=== PATIENT | female | born 1935 | race Caucasian/White ===

== ENCOUNTER 2017-09-08 17:58 | Emergency (ER) | payer MEDICARE, BC ==
[2017-09-08] MEDS ORDERED: Sodium Chloride 0.9% 10 ML Syringe FLUSH PRN (18:59)
[2017-09-08] MEDS ORDERED: Acetaminophen 325 MG Tab PO ONE (19:53)
[2017-09-08 22:25] VITALS: BP 161/104
[2017-09-08] MEDS ORDERED: Oseltamivir 75 MG Cap PO ONE (22:28)
--- NOTE | 2017-09-08 22:35 | EDM.PDOC ---
ED HPI GENERAL MEDICAL PROBLEM - General Chief Complaint: Respiratory Problem Stated Complaint: WEAKNESS Time Seen by Provider: 09/08/17 18:29 Source of Information: Reports: Family History Limitations: Reports: No Limitations - History of Present Illness INITIAL COMMENTS - FREE TEXT/NARRATIVE: This lady is brought in by EMS. She has dementia so her history is not very reliable. She seems to have the same symptoms as 2 months ago when she had some pneumonia. Apparently there's been some fever and chills and body aches. Her said her temp was 100.2 this morning. She's also had a little bit of lower abdominal pain and they're wondering about a urinary tract infection. The patient is non-ambulatory. She did get a flu shot this year - Related Data Allergies Allergy/AdvReac Type Severity Reaction Status Date / Time No Known Allergies Allergy Verified 01/09/14 06:09 Home Meds: Home Meds Warfarin Sodium [Jantoven] 5 mg PO ASDIRECTED 01/09/14 [History] Albuterol Sulfate [Ventolin Hfa] 2 puff INH QID PRN 09/08/17 [History] Cholestyramine (With Sugar) [Questran Powder] 9 gr PO BID 09/08/17 [History] Furosemide [Furosemide] 1 tab PO DAILY 09/08/17 [History] LORazepam 0.5 tab PO DAILY 09/08/17 [History] Metoprolol Tartrate [Metoprolol Tartrate] 1 tab PO BID 09/08/17 [History] Sertraline [Zoloft] 1 tab PO DAILY 09/08/17 [History] Vit D3/Folic Acid/B2/B6/B12 [Folgard Tablet] 1 tab PO DAILY 09/08/17 [History] risperiDONE 1 tab PO DAILY 09/08/17 [History] Social & Family History - Tobacco Use Smoking Status *Q: Never Smoker Second Hand Smoke Exposure: No - Alcohol Use Days Per Week of Alcohol Use: 0 - Recreational Drug Use Recreational Drug Use: No ED ROS GENERAL - Review of Systems Review Of Systems: ROS reveals no pertinent complaints other than HPI. (All history given by the family) ED EXAM, GENERAL - Physical Exam Exam: See Below Exam Limited By: No Limitations General Appearance: Alert, No Apparent Distress, Obese Eye Exam: Bilateral Eye: Normal Inspection Ears: Normal TMs Nose: Normal Inspection Throat/Mouth: Normal Inspection, Other (Well-hydrated) Head: Atraumatic Neck: Normal Inspection Respiratory/Chest: No Respiratory Distress, Lungs Clear Cardiovascular: Regular Rate, Rhythm, No Murmur Peripheral Pulses: 2+: Radial (L), Radial (R) (Pedal pulses cannot be palpated due to chronic edema) GI/Abdominal: Soft, Non-Tender Extremities: Pedal Edema (Chronic no evidence of cellulitis) Neurological: Alert, CN II-XII Intact, No Motor/Sensory Deficits, Confused Psychiatric: Normal Affect, Normal Mood Skin Exam: Warm, Dry, Intact Course - Vital Signs Last Recorded V/S: Last Vital Signs Temp 37.7 C 09/08/17 20:49 Pulse 110 H 09/08/17 22:24 Resp 22 H 09/08/17 22:24 BP 161/104 H 09/08/17 22:24 Pulse Ox 90 L 09/08/17 22:24 - Orders/Labs/Meds Orders: Active Orders 24 hr Category Date Time Status Chest 1V Frontal [CR] Urgent Exams 09/08/17 18:59 Taken Sodium Chloride 0.9% [Saline Flush] Med 09/08/17 18:59 Active 10 ml FLUSH ASDIRECTED PRN Saline Lock Insert [OM.PC] Urgent Oth 09/08/17 18:59 Ordered Medication Orders Sodium Chloride (Saline Flush) 10 ml FLUSH ASDIRECTED PRN PRN Reason: Keep Vein Open Labs: Laboratory Tests 09/08/17 09/08/17 09/08/17 Range/Units 19:11 19:11 19:11 WBC 7.4 (4.5-11.0) K/uL RBC 4.77 (3.30-5.50) M/uL Hgb 14.2 (12.0-15.0) g/dL Hct 44.4 (36.0-48.0) % MCV 93 (80-98) fL MCH 30 (27-31) pg MCHC 32 (32-36) % Plt Count 207 (150-400) K/uL Neut % (Auto) 76 H (36-66) % Lymph % (Auto) 13 L (24-44) % [place] % (Auto) 10 H (2-6) % Eos % (Auto) 1 L (2-4) % Baso % (Auto) 0 (0-1) % Sodium 139 L (140-148) mmol/L Potassium 3.8 (3.6-5.2) mmol/L Chloride 102 (100-108) mmol/L Carbon Dioxide 29 (21-32) mmol/L Anion Gap 11.8 (5.0-14.0) mmol/L BUN 21 H (7-18) mg/dL Creatinine 1.5 H (0.6-1.0) mg/dL Est Cr Clr Drug Dosing TNP Estimated GFR (MDRD) 33 L (>60) Glucose 102 (74-106) mg/dL Lactic Acid 1.2 (0.4-2.0) mmol/L Calcium 8.4 L (8.5-10.1) mg/dL Total Bilirubin 0.7 (0.2-1.0) mg/dL AST 32 (15-37) U/L ALT 41 (12-78) U/L Alkaline Phosphatase 98 (46-116) U/L Total Protein 7.5 (6.4-8.2) g/dL Albumin 3.2 L (3.4-5.0) g/dL Globulin 4.3 H (2.3-3.5) g/dL Albumin/Globulin Ratio 0.7 L (1.2-2.2) Urine Color Urine Appearance Urine pH (4.5-8.0) Ur Specific [place] (1.008-1.030) Urine Protein (NEGATIVE) mg/dL Urine Glucose (UA) (NEGATIVE) mg/dL Urine Ketones (NEGATIVE) mg/dL Urine Occult Blood (NEGATIVE) Urine Nitrite (NEGATIVE) Urine Bilirubin (NEGATIVE) Urine Urobilinogen (NORMAL) mg/dL Ur Leukocyte Esterase (NEGATIVE) Urine RBC (0-5) Urine WBC (0-5) Ur Epithelial Cells Amorphous Sediment Urine Bacteria Urine Mucus 09/08/17 Range/Units 20:50 WBC (4.5-11.0) K/uL RBC (3.30-5.50) M/uL Hgb (12.0-15.0) g/dL Hct (36.0-48.0) % MCV (80-98) fL MCH (27-31) pg MCHC (32-36) % Plt Count (150-400) K/uL Neut % (Auto) (36-66) % Lymph % (Auto) (24-44) % [place] % (Auto) (2-6) % Eos % (Auto) (2-4) % Baso % (Auto) (0-1) % Sodium (140-148) mmol/L Potassium (3.6-5.2) mmol/L Chloride (100-108) mmol/L Carbon Dioxide (21-32) mmol/L Anion Gap (5.0-14.0) mmol/L BUN (7-18) mg/dL Creatinine (0.6-1.0) mg/dL Est Cr Clr Drug Dosing Estimated GFR (MDRD) (>60) Glucose (74-106) mg/dL Lactic Acid (0.4-2.0) mmol/L Calcium (8.5-10.1) mg/dL Total Bilirubin (0.2-1.0) mg/dL AST (15-37) U/L ALT (12-78) U/L Alkaline Phosphatase (46-116) U/L Total Protein (6.4-8.2) g/dL Albumin (3.4-5.0) g/dL Globulin (2.3-3.5) g/dL Albumin/Globulin Ratio (1.2-2.2) Urine Color Yellow Urine Appearance Clear Urine pH 7.0 (4.5-8.0) Ur Specific [place] 1.015 (1.008-1.030) Urine Protein 30 H (NEGATIVE) mg/dL Urine Glucose (UA) Normal (NEGATIVE) mg/dL Urine Ketones Negative (NEGATIVE) mg/dL Urine Occult Blood Moderate (NEGATIVE) Urine Nitrite Negative (NEGATIVE) Urine Bilirubin Negative (NEGATIVE) Urine Urobilinogen Normal (NORMAL) mg/dL Ur Leukocyte Esterase Negative (NEGATIVE) Urine RBC 0-5 (0-5) Urine WBC 0-5 (0-5) Ur Epithelial Cells Few Amorphous Sediment Few Urine Bacteria Few Urine Mucus Rare Meds: Medications Generic Name Dose Route Start Last Admin Trade Name Freq PRN Reason Stop Dose Admin Sodium Chloride 10 ml 09/08/17 18:59 Saline Flush FLUSH ASDIRECTED PRN Keep Vein Open Discontinued Medications Generic Name Dose Route Start Last Admin Trade Name Freq PRN Reason Stop Dose Admin Acetaminophen 650 mg 09/08/17 19:53 09/08/17 19:58 Tylenol PO 09/08/17 19:54 650 mg NOW ONE Administration Oseltamivir Phosphate 75 mg 09/08/17 22:28 Tamiflu PO 09/08/17 22:29 ONETIME ONE - Radiology Interpretation Free Text/Narrative:: Chest x-ray showed no evidence of active disease. - Re-Assessments/Exams Free Text/Narrative Re-Assessment/Exam: 09/08/17 22:34 I haven't found any evidence of an acute infectious disease in this lady. Overall she looks fairly healthy. Since she has had a fever and body aches, even though the influenza test is negative, I will cover her for influenza since this may be early symptoms of an influenza-like illness. There have been a few cases of influenza in the community. I explained to the family there is no need for antibiotics in this lady Departure - Departure Time of Disposition: 22:36 Disposition: DC/Tfer to [facility] 03 Condition: Fair Clinical Impression: Influenza-like illness - Discharge Information Referrals: Shital Dillard NP [Primary Care Provider] - Additional Instructions: This lady may be having early signs of an influenza-like illness. Her flu test was negative however and she has received a flu shot. Since the influenza test is not totally sensitive for the flu I will go ahead and cover her with some Tamiflu. She received her first dose in the emergency department. She will need one dose twice a day for an additional 9 doses. - My Orders Last 24 Hours: My Active Orders 09/08/17 18:59 Chest 1V Frontal [CR] Urgent Sodium Chloride 0.9% [Saline Flush] 10 ml FLUSH ASDIRECTED PRN Saline Lock Insert [OM.PC] Urgent - Assessment/Plan Last 24 Hours: My Active Orders 09/08/17 18:59 Chest 1V Frontal [CR] Urgent Sodium Chloride 0.9% [Saline Flush] 10 ml FLUSH ASDIRECTED PRN Saline Lock Insert [OM.PC] Urgent
== END 2017-09-09 00:05 ==
LOC: JP.ED 17:58
DX: J11.1 Influenza due to unidentified influenza virus with other respiratory manifestations (principal); Z79.01 Long term (current) use of anticoagulants; Z79.899 Other long term (current) drug therapy
CPT/HCPCS: 36415; 71010; 80053; 81001; 83605; 85025; 87804; 99285; A9270; 99283

== ENCOUNTER 2017-09-09 23:08 | Inpatient (IN) | payer MEDICARE, BC ==
[2017-09-10] MEDS ORDERED: Oseltamivir 75 MG Cap PO ONE (00:06)
--- NOTE | 2017-09-10 02:12 | EDM.PDOC ---
ED HPI GENERAL MEDICAL PROBLEM - General Chief Complaint: Fever Stated Complaint: ILLNESS Time Seen by Provider: 09/10/17 00:05 Source of Information: Reports: Patient, Family History Limitations: Reports: Physical Impairment - History of Present Illness INITIAL COMMENTS - FREE TEXT/NARRATIVE: This patient was seen in the emergency department yesterday by me. She has been having some low-grade fever and cough and the family just wanted her checked out. A full septic workup was done on her and there was no evidence of any kind of bacterial infection. I did do an influenza test which was also negative and it's noted that there are only a few cases of influenza around. Since there is a fairly high false-negative rate on the influenza test I went ahead and started her on some Tamiflu and [place] [facility] back [place] [facility] [place] [facility]. She actually is in what amounts to an assisted living facility rather than a [facility] [place] [facility] since there is no nurse present. Today the family was with her a said that her temperature was up to 101 this morning. She still continues to cough weekly and is not able to cough up anything. They feel she's been lethargic all day. Her speech seemed to be garbled for about 1 or 1-1/2 hours earlier today. A family member who is a nurse at our hospital took a look at her and felt like she needed to be evaluated in the hospital. The patient's and daughter both feel like she looks a lot worse today than she did yesterday This lady has dementia so was not able to give much of a history. throat Pain Score (Numeric/FACES): 2 - Related Data Allergies Allergy/AdvReac Type Severity Reaction Status Date / Time No Known Allergies Allergy Verified 01/09/14 06:09 Home Meds: Home Meds Albuterol Sulfate [Ventolin Hfa] 2 puff INH QID PRN 09/08/17 [History] Cholestyramine (With Sugar) [Questran Powder] 9 gr PO BID 09/08/17 [History] Furosemide 1 tab PO DAILY 09/08/17 [History] LORazepam 0.5 tab PO DAILY 09/08/17 [History] Sertraline [Zoloft] 1 tab PO DAILY 09/08/17 [History] Vit D3/Folic Acid/B2/B6/B12 [Folgard Tablet] 1 tab PO DAILY 09/08/17 [History] risperiDONE 1 tab PO DAILY 09/08/17 [History] Diltiazem HCl [Diltiazem 24Hr Cd] 240 mg PO DAILY #30 cap.er.24h 09/14/17 [Rx] Levofloxacin [Levaquin] 250 mg PO Q24H #3 tablet 09/14/17 [Rx] Metoprolol Tartrate [Lopressor] 50 mg PO BID #60 tablet 09/14/17 [Rx] Warfarin Sodium [Jantoven] 5 mg PO DAILY #0 09/14/17 [Rx] Past Medical History Cardiovascular History: Reports: Afib, High Cholesterol, Hypertension, Other ( See Below) Other Cardiovascular History: hx of paroxysmal supraventricular tachycardia Respiratory History: Reports: Other (See Below) Other Respiratory History: reactive airway disease Social & Family History - Tobacco Use Smoking Status *Q: Never Smoker Second Hand Smoke Exposure: No - Caffeine Use Caffeine Use: Reports: None - Alcohol Use Days Per Week of Alcohol Use: 0 - Recreational Drug Use Recreational Drug Use: No ED ROS GENERAL - Review of Systems Review Of Systems: See Below Constitutional: Reports: Fever, Malaise, Weakness, Diaphoresis HEENT: Reports: No Symptoms Respiratory: Reports: Cough (The family says her cough is very weak and she has never able to expectorate anything) Cardiovascular: Reports: No Symptoms Endocrine: Reports: No Symptoms GI/Abdominal: Reports: No Symptoms : Reports: No Symptoms Musculoskeletal: Reports: No Symptoms Skin: Reports: No Symptoms Neurological: Reports: Confusion Psychiatric: Reports: No Symptoms Hematologic/Lymphatic: Reports: No Symptoms ED EXAM, SEPSIS - Physical Exam Exam: See Below Exam Limited By: Altered Mental Status General Appearance: Alert, Mild Distress, Obese, Other (Initially she seems alert and in no distress. On rechecking she seems like she has a wet cough and seems diaphoretic.) Eye Exam: Bilateral Eye: Normal Inspection Throat/Mouth: Normal Oropharynx Neck: Normal Inspection Respiratory/Chest: Lungs Clear Cardiovascular: Irregularly Irregular GI/Abdominal Exam: Soft, Non-Tender, Other (Very obese) Back: Normal Inspection Extremities: Pedal Edema (Severe chronic leg edema bilaterally) Neurological: CN II-XII Intact, Confused, Other (At times this lady seems alert at other times she seems a little slow to respond) Skin: Diaphoretic Course - Vital Signs Last Recorded V/S: Last Vital Signs Temp 36.1 C 09/14/17 08:00 Pulse 120 H 09/14/17 08:10 Resp 16 09/14/17 10:00 BP 117/75 09/14/17 10:00 Pulse Ox 94 L 09/14/17 10:00 - Orders/Labs/Meds Labs: Laboratory Tests 09/10/17 09/10/17 09/10/17 Range/Units 00:21 00:21 00:21 WBC 8.4 (4.5-11.0) K/uL RBC 4.72 (3.30-5.50) M/uL Hgb 14.2 (12.0-15.0) g/dL Hct 43.4 (36.0-48.0) % MCV 92 (80-98) fL MCH 30 (27-31) pg MCHC 33 (32-36) % Plt Count 191 (150-400) K/uL Neut % (Auto) 72 H (36-66) % Lymph % (Auto) 18 L (24-44) % [place] % (Auto) 9 H (2-6) % Eos % (Auto) 1 L (2-4) % Baso % (Auto) 1 (0-1) % PT (9.5-12.0) sec INR (0.80-1.20) Sodium 139 L (140-148) mmol/L Potassium 3.9 (3.6-5.2) mmol/L Chloride 103 (100-108) mmol/L Carbon Dioxide 26 (21-32) mmol/L Anion Gap 13.9 (5.0-14.0) mmol/L BUN 21 H (7-18) mg/dL Creatinine 1.6 H (0.6-1.0) mg/dL Est Cr Clr Drug Dosing 23.81 mL/min Estimated GFR (MDRD) 31 L (>60) Glucose 117 H (74-106) mg/dL Lactic Acid 1.2 (0.4-2.0) mmol/L Calcium 8.7 (8.5-10.1) mg/dL 09/10/17 Range/Units 02:55 WBC (4.5-11.0) K/uL RBC (3.30-5.50) M/uL Hgb (12.0-15.0) g/dL Hct (36.0-48.0) % MCV (80-98) fL MCH (27-31) pg MCHC (32-36) % Plt Count (150-400) K/uL Neut % (Auto) (36-66) % Lymph % (Auto) (24-44) % [place] % (Auto) (2-6) % Eos % (Auto) (2-4) % Baso % (Auto) (0-1) % PT 15.4 H (9.5-12.0) sec INR 1.42 H (0.80-1.20) Sodium (140-148) mmol/L Potassium (3.6-5.2) mmol/L Chloride (100-108) mmol/L Carbon Dioxide (21-32) mmol/L Anion Gap (5.0-14.0) mmol/L BUN (7-18) mg/dL Creatinine (0.6-1.0) mg/dL Est Cr Clr Drug Dosing mL/min Estimated GFR (MDRD) (>60) Glucose (74-106) mg/dL Lactic Acid (0.4-2.0) mmol/L Calcium (8.5-10.1) mg/dL Meds: Medications Discontinued Medications Generic Name Dose Route Start Last Admin Trade Name Freq PRN Reason Stop Dose Admin Acetaminophen 650 mg 09/10/17 02:43 09/11/17 16:08 Tylenol PO 650 mg Q4H PRN Administration analgesia/fever Albuterol/Ipratropium 3 ml 09/10/17 02:51 09/13/17 09:12 Duoneb 3.0-0.5 Mg/3 Ml NEB 3 ml Q4H PRN Administration Dyspnea Azithromycin 500 mg 09/10/17 09:00 09/10/17 08:57 Zithromax PO 09/10/17 09:01 500 mg DAILY SHENA Administration Azithromycin 250 mg 09/11/17 09:00 09/11/17 08:17 Zithromax PO 09/14/17 09:01 250 mg DAILY SHENA Administration Digoxin 250 mcg 09/14/17 09:00 09/14/17 10:00 Lanoxin IVPUSH 09/14/17 09:01 Not Given ONETIME ONE Diltiazem HCl 20 mg 09/11/17 22:04 09/11/17 22:21 Diltiazem IVPUSH 09/11/17 22:05 20 mg ONETIME ONE Administration Diltiazem HCl 5 mg 09/12/17 02:39 09/12/17 03:00 Diltiazem IVPUSH 09/12/17 02:40 5 mg ONETIME ONE Administration Diltiazem HCl 60 mg 09/12/17 10:00 09/13/17 03:36 Cardizem PO 60 mg Q6H SHENA Administration Diltiazem HCl 240 mg 09/13/17 09:00 09/14/17 08:10 Cardizem Cd PO 240 mg DAILY SHENA Administration Furosemide 40 mg 09/12/17 09:00 09/14/17 08:10 Lasix PO 40 mg DAILY SHENA Administration Levofloxacin/Dextrose 250 mg/ 50 mls @ 50 mls/hr 09/10/17 03:00 09/10/17 03: 41 Premix IV 50 mls/hr Q24H SHENA Administration Levofloxacin/Dextrose 250 mg/ 50 mls @ 50 mls/hr 09/10/17 22:00 09/13/17 21: 23 Premix IV 50 mls/hr Q24H SHENA Administration Diltiazem HCl 100 mg/ Sodium 100 mls @ 5 mls/hr 09/11/17 22:15 09/12/17 06:43 Chloride IV 15 mg/hr TITRATE SHENA 15 mls/hr Protocol Administration 5 MG/HR Sodium Chloride 500 mls @ 0 mls/hr 09/11/17 22:30 Normal Saline IV ASDIRECTED SHENA KVO Potassium Chloride 20 meq/ 112 mls @ 56 mls/hr 09/13/17 09:30 09/13/17 14:00 Lidocaine HCl 2 ml/ Sodium IV 09/13/17 13:29 56 mls/hr Chloride Q2H SHENA Administration Lorazepam 0.5 mg 09/10/17 09:00 09/14/17 08:09 Ativan PO 0.5 mg DAILY SHENA Administration Lorazepam 0.5 mg 09/12/17 01:35 09/13/17 00:42 Ativan IVPUSH 0.5 mg Q2H PRN Administration Agitation Metoprolol Tartrate 25 mg 09/10/17 09:00 09/12/17 21:23 Lopressor PO 25 mg BID SHENA Administration Metoprolol Tartrate 25 mg 09/10/17 05:48 09/10/17 06:01 Lopressor PO 09/10/17 05:49 25 mg ONETIME ONE Administration Metoprolol Tartrate 50 mg 09/13/17 09:00 09/14/17 08:10 Lopressor PO 50 mg BID SHENA Administration Oseltamivir Phosphate 75 mg 09/10/17 00:06 09/10/17 00:16 Tamiflu PO 09/10/17 00:07 75 mg ONETIME ONE Administration Oseltamivir Phosphate 75 mg 09/10/17 09:00 09/10/17 08:57 Tamiflu PO 75 mg BID SHENA Administration Oseltamivir Phosphate 30 mg 09/11/17 09:00 09/11/17 08:19 Tamiflu PO 30 mg DAILY SHENA Administration Potassium Chloride 40 meq 09/13/17 09:00 09/13/17 08:53 Klor-Con M20 PO 09/13/17 09:01 40 meq ONETIME ONE Administration Risperidone 0.25 mg 09/10/17 09:00 09/14/17 08:10 Risperidal PO 0.25 mg DAILY SHENA Administration Sertraline HCl 50 mg 09/10/17 09:00 09/14/17 08:10 Zoloft PO 50 mg DAILY SHENA Administration Warfarin Sodium 2.5 mg 09/10/17 13:00 09/11/17 12:26 Coumadin PO 2.5 mg DAILY@1300 SHENA Administration Warfarin Sodium 5 mg 09/12/17 12:00 09/12/17 11:09 Coumadin PO 09/12/17 12:01 5 mg ONETIME ONE Administration Warfarin Sodium 5 mg 09/13/17 13:00 09/13/17 14:01 Coumadin PO 09/13/17 13:01 5 mg ONETIME ONE Administration Warfarin Sodium 7.5 mg 09/14/17 11:00 09/14/17 11:22 Coumadin PO 09/14/17 11:01 7.5 mg ONETIME ONE Administration - Radiology Interpretation Free Text/Narrative:: Chest x-ray appears unchanged from the film done yesterday that was reviewed by the radiologist and no acute abnormalities were seen - Re-Assessments/Exams Free Text/Narrative Re-Assessment/Exam: 09/10/17 02:14 Labs were done on this patient. Her white count is normal and she has a normal lactic acid. And presently she is afebrile. Her and daughter are certain that she is a lot worse today and they fear for her safety if she goes back to the assisted living facility especially since they don't have any nurse present tonight. I note that this patient is in atrial fibrillation and her heart rate is running about 120 occasionally a little bit fast. She appears to be euvolemic so I have not tried hydrating her. I spoke with Dr. Hodges and he recommended I put her on oral antibiotics and send her back. Overall I think it would be odonnell to put this lady and for observation and possibly start her on IV antibiotics. I asked Dr. Hodges is to come to the emergency department and evaluate this lady and he is expected shortly 09/10/17 02:20 Departure - Departure Time of Disposition: 02:30 Disposition: Admitted As Inpatient 66 Clinical Impression: Sepsis - Discharge Information
[2017-09-10] MEDS ORDERED: Levofloxacin/Dextrose 5%-Water 250 MG in Premix Bag 1 BAG IV SCH (03:00)
[2017-09-10] MEDS ORDERED: Warfarin 5 MG Tab PO SCH (03:00)
[2017-09-10] MEDS: Acetaminophen 325 MG Tab PO PRN ×3 (04:09→20:20)
[2017-09-10] MEDS: Albuterol/Ipratropium 3.0-0.5 MG/3 ML Neb Soln NEB PRN ×4 (04:28→20:21)
[2017-09-10] MEDS ORDERED: Metoprolol Tartrate 25 MG Tab PO ONE (05:48)
[2017-09-10] MEDS: Metoprolol Tartrate 25 MG Tab PO SCH ×2 (08:20→20:21)
--- NOTE | 2017-09-10 08:21 | HP ---
IDENTIFYING DATA: Hetal Pickard is an 81-year-old, female, currently residing at [facility]. CHIEF COMPLAINT: Fever and listlessness. HISTORY OF PRESENT ILLNESS: Family presented with Hetal at the emergency room this evening for evaluation of persistent fever of greater than 48 hours' time. She has accompanying congestion, a weak rhonchorous cough, and subjective wheezing, as well as diminished appetite, and listlessness. She has had no complaints of pain. No obvious sputum production. No abdominal upset. She refused supper this evening. She did eat well at lunch time. She was seen in the emergency room 24 hours ago for evaluation of fever. Lab and x-ray were unrevealing. She was placed on Tamiflu for potential influenza-like vaccine, and continues to experience ongoing fever managed with use of Tylenol. She has no history of chronic obstructive pulmonary disease. She is a life-long non-smoker. Influenza and pneumococcal vaccines are current. She has had no reports of dysuria or flank pain. She is chronically incontinent of urine. PAST MEDICAL HISTORY: Noted history of 1. Chronic atrial fibrillation. 2. Hypertension. 3. Alzheimer's type dementia with memory loss and behavioral changes. HABITS: Non-smoker. No alcohol use. Infrequent use of caffeinated beverages in the form of coffee. IMMUNIZATIONS HISTORY: As noted, pneumococcal and influenza vaccines are current. ALLERGIES: NONE NOTED. MEDICATIONS: 1. Warfarin 2.5 mg three days weekly. 2. Albuterol metered-dose inhaler four times a day p.r.n. wheeze. 3. Cholestyramine 9 g p.o. b.i.d. 4. Furosemide 40 mg daily. 5. Lorazepam 0.5 mg daily and q.4 hours p.r.n. 6. Metoprolol tartrate 25 mg b.i.d. 7. Sertraline 50 mg daily. 8. Vitamin D3, folic acid, B2, B6, and B12 one tablet daily. 9. Risperidone one tablet daily, dose unknown. 10.Rosuvastatin 10 mg daily. 11.Tamiflu 75 mg p.o. b.i.d., initiated yesterday. SOCIAL HISTORY: She is . She has a history of progressive cognitive impairment secondary to Alzheimer's type dementia. She had been residing with until mid summer when progressive dementia necessitated placement in [facility]. visits daily. She is incontinent of urine, and requires assistance with ADLs including dressing and bathing. She is no longer ambulatory, and is transferred with the use of a lift system. FAMILY HISTORY: Unable to obtain information. notes no familial members have current acute respiratory infections. REVIEW OF SYSTEMS: HEENT: Glasses are worn. No significant hearing loss. No history of recognized stroke, though she has had some garbled speech reported today. CARDIAC: Chronic atrial fibrillation and hypertension. No history of GA or congestive heart failure or previous embolic stroke. She remains on Coumadin anticoagulant therapy. Records indicate a history of hyperglycemia without definitive diabetes. RESPIRATORY: No history of asthma or emphysema or tuberculosis. Several-day history of cough is noted. She was treated with outpatient antibiotic therapies for reasons of pneumonia approximately two months ago. GASTROINTESTINAL: No reports of emesis or complaints of abdominal pain. No noted history of hepatitis or jaundice. Bowel movements are formed without diarrhea or melena. GENITOURINARY: Incontinent of urine. No complaints of dysuria. MUSCULOSKELETAL: Non-ambulatory and requires transfer with a lift system. PHYSICAL EXAMINATION: GENERAL: Appearance is that of an adult listless female. She opens her eyes and engages minimally in conversation. She is confused. VITAL SIGNS: Temperature of 37.3, pulse of 120 and irregular, respiratory rate of 18, blood pressure of 180/131, and O2 sats of 93% on room air. HEENT: Hearing seems to be intact. No facial asymmetries. Extraocular eye movements are symmetrical. Tongue is moist. NECK: Brisk irregular carotid pulses. No bruits or JVD. LUNGS: Non-tachypneic and resonant to percussion. Bilateral expiratory wheezes and rhonchi are noted. No retractions. HEART: Irregular consistent with atrial fibrillation. No murmurs or gallops are noted. ABDOMEN: Soft, nontender, and nondistended. Active sounds. No obvious organomegaly. GENITOURINARY: Omitted. RECTAL: Omitted. EXTREMITIES: Chronic pitting edema. Venous stasis changes. No current open lesions. Palpable pulses. SKIN: Warm, pink, and dry. LABORATORY DATA: On admission, WBC of 8.4, hemoglobin of 14.2, hematocrit of 43.4, platelet count of 191,000 with 72 segs, 18 lymphocytes, and 9 monos. Lactic acid is 1.2. Sodium was 139, potassium was 3.9, BUN was 21, creatinine was 1.6, GFR was 24, glucose was 117, and calcium was 8.7. DIAGNOSTIC STUDIES: Chest x-ray with chronic interstitial changes bilaterally, and no definitive acute infiltrates were noted. IMPRESSION: 1. Febrile presentation, now with accompanying cough and respiratory sounds suggesting early pulmonary infection. 2. Change in speech and listlessness are likely secondary to febrile presentation. Could not exclude acute transient ischemic attack. 3. History of chronic atrial fibrillation with Coumadin anticoagulant therapy. 4. Alzheimer's type dementia. 5. Non-ambulatory state secondary to dementia. 6. Hypertension. PLAN: The patient will be admitted to Inpatient Service on the Med/Surg floor for ongoing monitoring. We will initiate antibiotics with IV Levaquin and oral azithromycin, provide oxygen supplementation if needed for hypoxia, and DuoNeb for wheezing and rhonchorous sounds and for management of pulmonary symptoms. We will provide Tylenol on a p.r.n. basis, and monitor pro-time/INR closely with chronic Coumadin anticoagulant therapy coupled with initiated antibiotics. We will anticipate discharge back to assisted care facility when her status has stabilized, with anticipated hospital stay of less than 92 hours. Sven Hodges MD /[id number]
[2017-09-10] MEDS: risperiDONE 0.25 MG Tab PO SCH (08:57)
[2017-09-10] MEDS: Sertraline 50 MG Tab PO SCH (08:57)
[2017-09-10] MEDS: LORazepam 0.5 MG Tab PO SCH (08:57)
[2017-09-10] MEDS ORDERED: Azithromycin 250 MG Tab PO SCH (09:00)
[2017-09-10] MEDS ORDERED: Oseltamivir 75 MG Cap PO SCH (09:00)
--- NOTE | 2017-09-10 09:25 | CR ---
Chest 1V Frontal HISTORY: pain COMPARISON: 09/08/2017 FINDINGS: Portable chest, 0016 hours. Mild interstitial prominence bilaterally is similar to the prior exam and could be artifact due to AP portable technique and incomplete inspiration. I cannot exclude early pneumonitis or pulmonary conge stive changes. Probable mild linear atelectasis right lung base is unchanged. Heart size is felt with in normal limits and stable. No vascular redistribution or pleural fluid is seen. Remainder of the ex am is unchanged. IMPRESSION: Mild interstitial prominence may represent artifact due to portable technique and incompl ete inspiration. I cannot exclude early CHF or nonspecific pneumonitis. There is no focal consolidati on, cardiomegaly, or pleural fluid. There may be mild linear atelectasis right lung base which is sta ble.
--- NOTE | 2017-09-10 09:32 | PN ---
DATE OF SERVICE: 09/10/2017 SUBJECTIVE: An elderly female, resident of [facility]; has noted history of progressive dementia and accompanying chronic atrial fibrillation, with Coumadin anticoagulant therapy. She was admitted with a greater than 48-hour history of persistent fever, congestion, cough, and wheezes and rhonchi noted on clinical exam. Through the night, she rested intermittently. She denies pain. Wheeze improves with administration of DuoNeb. No hypoxia is noted. OBJECTIVE: VITAL SIGNS: Afebrile. Vital signs unchanged. NECK: Brisk, irregular carotid pulses. No bruits or JVD. LUNGS: Mild expiratory rhonchi bilaterally. Expiratory wheezes have shown interval improvement, symmetrical aeration. HEART: Irregular without murmurs or gallops noted. EXTREMITIES: Warm and pink. Chronic dependent edema of the lower extremities present. IMPRESSION AND PLAN: 1. Febrile presentation with congestion and cough. Clinical presentation suggests early pneumonia. In addition to Tamiflu initiated as an outpatient, she remains on combination antibiotics with IV Levaquin and oral azithromycin. We will monitor pulmonary status with O2 saturations to be managed with oxygen supplementation if hypoxia is evident, additionally provide DuoNeb on a p.r.n. basis. 2. Chronic atrial fibrillation. Continue with Coumadin. Follow up pro-time, INR with daily lab review. 3. Alzheimer's dementia. Anticipate return to [facility] when acute febrile illness shows interval improvement. Sven Hodges MD /[id number]
--- NOTE | 2017-09-10 10:09 | CT ---
Head wo Cont HISTORY: garbled speech TECHNIQUE: Spiral noncontrast CT scan of the brain was obtained along with high-resolution bone windo w reconstructions. FINDINGS: No acute intracranial hemorrhage or infarct is identified. There is no mass lesion, mass effect, or m idline shift. There is prominence of the ventricles and sulci consistent with moderate generalized ce rebral atrophy. Cerebral atrophy has progressed since the exam of 06/03/2008. There are low-attenuatio n changes in the deep periventricular white matter bilaterally consistent with chronic microvascular ischemic disease. These changes have also progressed in the interval. No abnormal extra-axial fluid c ollections are seen. Visualized paranasal sinuses and mastoid air cells are clear. Bone windows show no evidence for skull fracture. IMPRESSION: 1. No hemorrhage, infarct, or other acute intracranial abnormality is identified. 2. Moderate generalized cerebral atrophy and chronic deep white matter microvascular ischemic changes have progressed since the exam of 06/03/2008. Total DLP 663 mGycm
[2017-09-10] MEDS: Warfarin 2.5 MG Tab PO SCH (12:33)
[2017-09-10] MEDS: Levofloxacin/Dextrose 5%-Water 250 MG in Premix Bag 1 BAG IV SCH (21:12)
[2017-09-11] MEDS: Metoprolol Tartrate 25 MG Tab PO SCH ×2 (08:14→20:01)
[2017-09-11] MEDS: risperiDONE 0.25 MG Tab PO SCH (08:18)
[2017-09-11] MEDS: Sertraline 50 MG Tab PO SCH (08:19)
[2017-09-11] MEDS: LORazepam 0.5 MG Tab PO SCH (08:20)
[2017-09-11] MEDS ORDERED: Azithromycin 250 MG Tab PO SCH (09:00)
[2017-09-11] MEDS ORDERED: Oseltamivir 30 MG Cap PO SCH (09:00)
[2017-09-11] MEDS: Albuterol/Ipratropium 3.0-0.5 MG/3 ML Neb Soln NEB PRN ×2 (11:38→20:06)
[2017-09-11] MEDS: Warfarin 2.5 MG Tab PO SCH (12:26)
--- NOTE | 2017-09-11 14:37 | PCM.PN ---
- General Info Date of Service: 09/11/17 Subjective Update: This patient has been stable since admission, there is been no evidence of significant respiratory compromise, vital signs have been stable and she has remained afebrile. Continues to experience a fairly loose cough. Functional Status: Reports: Pain Controlled, Tolerating Diet, Urinating - Review of Systems General: Reports: Weakness. Denies: Fever, Chills Pulmonary: Reports: Cough, Sputum. Denies: Shortness of Breath, Hemoptysis, Wheezing Cardiovascular: Reports: No Symptoms Gastrointestinal: Reports: No Symptoms - Patient Data Vitals - Most Recent: Last Vital Signs Temp 99.1 F 09/11/17 12:00 Pulse 96 09/11/17 12:00 Resp 20 09/11/17 12:00 BP 150/82 H 09/11/17 12:00 Pulse Ox 92 L 09/11/17 12:00 Weight - Most Recent: 243 lb 0.002 oz I&O - Last 24 Hours: Intake & Output 09/10/17 09/11/17 09/11/17 22:59 06:59 14:59 Intake Total 290 500 Balance 290 500 Lab Results Last 24 Hours: Laboratory Results - last 24 hr 09/11/17 09/11/17 09/11/17 Range/Units 04:30 04:30 04:30 WBC 7.9 (4.5-11.0) K/uL RBC 4.26 (3.30-5.50) M/uL Hgb 12.6 (12.0-15.0) g/dL Hct 39.4 (36.0-48.0) % MCV 93 (80-98) fL MCH 30 (27-31) pg MCHC 32 (32-36) % Plt Count 163 (150-400) K/uL PT 15.7 H (9.5-12.0) sec INR 1.44 H (0.80-1.20) Sodium 143 (140-148) mmol/L Potassium 3.7 (3.6-5.2) mmol/L Chloride 107 (100-108) mmol/L Carbon Dioxide 26 (21-32) mmol/L Anion Gap 9.8 (5.0-14.0) mmol/L BUN 25 H (7-18) mg/dL Creatinine 1.5 H (0.6-1.0) mg/dL Est Cr Clr Drug Dosing 25.58 mL/min Estimated GFR (MDRD) 33 L (>60) Glucose 101 (74-106) mg/dL Calcium 8.3 L (8.5-10.1) mg/dL Med Orders - Current: Current Medications Acetaminophen (Tylenol) 650 mg PO Q4H PRN PRN Reason: analgesia/fever Last Admin: 09/10/17 20:20 Dose: 650 mg Albuterol/Ipratropium (Duoneb 3.0-0.5 Mg/3 Ml) 3 ml NEB Q4H PRN PRN Reason: Dyspnea Last Admin: 09/11/17 11:38 Dose: 3 ml Levofloxacin/Dextrose 250 mg/ (Premix) 50 mls @ 50 mls/hr IV Q24H [facility] Last Admin: 09/10/17 21:12 Dose: 50 mls/hr Lorazepam (Ativan) 0.5 mg PO DAILY [facility] Last Admin: 09/11/17 08:20 Dose: 0.5 mg Metoprolol Tartrate (Lopressor) 25 mg PO BID [facility] Last Admin: 09/11/17 08:14 Dose: 25 mg Risperidone (Risperidal) 0.25 mg PO DAILY [facility] Last Admin: 09/11/17 08:18 Dose: 0.25 mg Sertraline HCl (Zoloft) 50 mg PO DAILY [facility] Last Admin: 09/11/17 08:19 Dose: 50 mg Warfarin Sodium (Coumadin) 2.5 mg PO DAILY@1300 [facility] Last Admin: 09/11/17 12:26 Dose: 2.5 mg Discontinued Medications Azithromycin (Zithromax) 500 mg PO DAILY [facility] Stop: 09/10/17 09:01 Last Admin: 09/10/17 08:57 Dose: 500 mg Azithromycin (Zithromax) 250 mg PO DAILY [facility] Stop: 09/14/17 09:01 Last Admin: 09/11/17 08:17 Dose: 250 mg Levofloxacin/Dextrose 250 mg/ (Premix) 50 mls @ 50 mls/hr IV Q24H [facility] Last Admin: 09/10/17 03:41 Dose: 50 mls/hr Metoprolol Tartrate (Lopressor) 25 mg PO ONETIME ONE Stop: 09/10/17 05:49 Last Admin: 09/10/17 06:01 Dose: 25 mg Oseltamivir Phosphate (Tamiflu) 75 mg PO ONETIME ONE Stop: 09/10/17 00:07 Last Admin: 09/10/17 00:16 Dose: 75 mg Oseltamivir Phosphate (Tamiflu) 75 mg PO BID [facility] Last Admin: 09/10/17 08:57 Dose: 75 mg Oseltamivir Phosphate (Tamiflu) 30 mg PO DAILY [facility] Last Admin: 09/11/17 08:19 Dose: 30 mg - Exam Quality Assessment: DVT Prophylaxis General: Alert, Cooperative, No Acute Distress Lungs: Clear to Auscultation, Normal Respiratory Effort Cardiovascular: Regular Rate, Regular Rhythm, No Murmurs GI/Abdominal Exam: Normal Bowel Sounds, Soft, Non-Tender, No Organomegaly, No Distention Extremities: Non-Tender, No Pedal Edema Skin: Warm, Dry, Intact - Problem List Review Problem List Initiated/Reviewed/Updated: Yes - My Orders Last 24 Hours: My Active Orders 09/12/17 05:00 BASIC METABOLIC PANEL,BMP [CHEM] Timed CBC WITH AUTO DIFF [HEME] Timed INR,PT,PROTHROMBIN TIME [COAG] Timed - Plan Plan:: ASSESSMENT AND PLAN PNEUMONIA-fairly stable since admission with no evidence of sepsis or significant respiratory compromise -Blood cultures pending -Continue IV antibiotic therapy with levofloxacin ATRIAL FIBRILLATION WITH CONTROLLED VENTRICULAR RESPONSE-rate control has remained good, anticoagulation subtherapeutic -Continue daily warfarin -Recheck INR in a.m. CHRONIC KIDNEY DISEASE STAGE III-renal function stable from admission -Continue to closely monitor urine output and renal function DEMENTIA PALLIATIVE CARE- is willing to except antibiotic therapy but does not want to consider intubation or mechanical ventilation MAINTENANCE ISSUES -DVT prophylaxis; SCUDs -GI prophylaxis; not indicated -Mcgee catheter; not indicated -Nutrition; regular diet -Nicotine dependence; not required CODE STATUS-DNR ADMISSION STATUS-patient will be admitted to inpatient status, expect at least a 2 night hospital stay for evaluation and management of problems as outlined above. At the time of this admission I do not reasonably expected evaluation and management of this problem will require more than a 96 hour hospital stay. DISPOSITION-anticipate discharge to home after the hospital stay. PRIMARY CARE PROVIDER-
[2017-09-11] MEDS: Acetaminophen 325 MG Tab PO PRN (16:08)
[2017-09-11] MEDS: Levofloxacin/Dextrose 5%-Water 250 MG in Premix Bag 1 BAG IV SCH (21:50)
[2017-09-11] MEDS ORDERED: Diltiazem 25 MG/5 ML SDV IVPUSH ONE (22:04)
--- NOTE | 2017-09-11 22:23 | PCM.SN ---
- Free Text/Narrative Note: time; 22:10; call from ICU with concerns of tachycardia, possible A-Fib heart rate varies from 120's to 164. resp rate 24 blood pressure 133/[address] Paulson s; denies any chest pain, shortness of breath, reports feeling better than she has in a long time o; resting comfortable, no acute distress p; 143 rr 23 b/p 106/73 heart; irregular rate and rhythm abdomen; soft non tender extremities; legs with severe peripheral edema, non tender a; Atrial Fib. p; labs; CBC, BMP, Troponin, Magnesium, pending EKG; Atrial Fib with rate of >120"s Meds; Cardizem 20 mg IV bolus, then Cardizem 5mg/hr continueous drip will change Inpatient status from Med Surg to ICU Social Service Worker notified. Daughter Sylvie called, would like Dr. Paulson to call her after evaluation at [phone]
[2017-09-11] MEDS: Diltiazem 100 MG in Sodium Chloride 0.9% 100 ML IV SCH (22:27)
[2017-09-11] MEDS ORDERED: Sodium Chloride 0.9% 500 ML IV SCH (22:30)
--- NOTE | 2017-09-11 22:37 | PCM.SN ---
- Free Text/Narrative Note: I was called in to see this patient this evening by nursing staff because of elevated heart rate. She does have a known history of atrial fibrillation this evening developed rapid heart rate irregular rhythm consistent with atrial fibrillation. Initially she was mildly hypoxic but this is corrected with 2 L of oxygen via nasal cannula. At the present time she denies chest pain or pressure or shortness of breath and is unaware that her heart rate is elevated. EKG was obtained and does confirm atrial fibrillation with rapid ventricular response labs are pending at the time of this dictation. She will be given 20 mg of Cardizem IV followed by a continuous infusion of Cardizem at 5 mg per hour. Status has been changed from medical surgical to intensive care while on the IV Cardizem.
[2017-09-12] MEDS: LORazepam 2 MG/ML MDV IVPUSH PRN (01:49)
[2017-09-12] MEDS ORDERED: Diltiazem 25 MG/5 ML SDV IVPUSH ONE (02:39)
[2017-09-12] MEDS: Albuterol/Ipratropium 3.0-0.5 MG/3 ML Neb Soln NEB PRN ×3 (05:46→20:09)
[2017-09-12] MEDS: Diltiazem 100 MG in Sodium Chloride 0.9% 100 ML IV SCH (06:43)
[2017-09-12] MEDS: risperiDONE 0.25 MG Tab PO SCH (09:14)
[2017-09-12] MEDS: Metoprolol Tartrate 25 MG Tab PO SCH ×2 (09:14→21:23)
[2017-09-12] MEDS: Furosemide 40 MG Tab PO SCH (09:16)
[2017-09-12] MEDS: Sertraline 50 MG Tab PO SCH (09:16)
[2017-09-12] MEDS: LORazepam 0.5 MG Tab PO SCH (09:18)
--- NOTE | 2017-09-12 10:08 | PCM.PN ---
- General Info Date of Service: 09/12/17 Subjective Update: This patient developed transient hypoxia last night and then went into atrial fibrillation with rapid ventricular response. She does have a known and past history of atrial fibrillation and has been on oral anticoagulation with warfarin. Currently denies any symptoms of chest pain or pressure or shortness of breath. Rate control improved during the night with use of IV diltiazem but has remained elevated from baseline. Vital signs have otherwise been stable, she has had intermittent moderate temperature elevations. Functional Status: Reports: Tolerating Diet, Urinating - Review of Systems General: Reports: Fever, Weakness. Denies: Chills Pulmonary: Reports: Cough, Sputum. Denies: Shortness of Breath, Wheezing Cardiovascular: Reports: Dyspnea on Exertion. Denies: Chest Pain, Palpitations , Orthopnea, PND, Edema Gastrointestinal: Reports: No Symptoms - Patient Data Vitals - Most Recent: Last Vital Signs Temp 97.7 F 09/12/17 07:00 Pulse 109 H 09/12/17 09:14 Resp 21 H 09/12/17 08:53 BP 156/80 H 09/12/17 09:14 Pulse Ox 90 L 09/12/17 08:53 Weight - Most Recent: 243 lb 0.002 oz I&O - Last 24 Hours: Intake & Output 09/11/17 09/12/17 09/12/17 22:59 06:59 14:59 Intake Total 244 Balance 244 Lab Results Last 24 Hours: Laboratory Results - last 24 hr 09/11/17 09/12/17 09/12/17 Range/Units 22:48 05:45 05:45 WBC 8.7 7.6 (4.5-11.0) K/uL RBC 4.37 4.13 (3.30-5.50) M/uL Hgb 13.4 12.5 (12.0-15.0) g/dL Hct 40.6 38.1 (36.0-48.0) % MCV 93 92 (80-98) fL MCH 31 30 (27-31) pg MCHC 33 33 (32-36) % Plt Count 159 173 (150-400) K/uL Neut % (Auto) 63 67 H (36-66) % Lymph % (Auto) 24 19 L (24-44) % [place] % (Auto) 12 H 11 H (2-6) % Eos % (Auto) 1 L 2 (2-4) % Baso % (Auto) 1 0 (0-1) % PT 14.9 H (9.5-12.0) sec INR 1.37 H (0.80-1.20) Sodium (140-148) mmol/L Potassium (3.6-5.2) mmol/L Chloride (100-108) mmol/L Carbon Dioxide (21-32) mmol/L Anion Gap (5.0-14.0) mmol/L BUN (7-18) mg/dL Creatinine (0.6-1.0) mg/dL Est Cr Clr Drug Dosing mL/min Estimated GFR (MDRD) (>60) Glucose (74-106) mg/dL Calcium (8.5-10.1) mg/dL 09/12/17 Range/Units 05:45 WBC (4.5-11.0) K/uL RBC (3.30-5.50) M/uL Hgb (12.0-15.0) g/dL Hct (36.0-48.0) % MCV (80-98) fL MCH (27-31) pg MCHC (32-36) % Plt Count (150-400) K/uL Neut % (Auto) (36-66) % Lymph % (Auto) (24-44) % [place] % (Auto) (2-6) % Eos % (Auto) (2-4) % Baso % (Auto) (0-1) % PT (9.5-12.0) sec INR (0.80-1.20) Sodium 142 (140-148) mmol/L Potassium 3.7 (3.6-5.2) mmol/L Chloride 106 (100-108) mmol/L Carbon Dioxide 26 (21-32) mmol/L Anion Gap 10.5 (5.0-14.0) mmol/L BUN 25 H (7-18) mg/dL Creatinine 1.3 H (0.6-1.0) mg/dL Est Cr Clr Drug Dosing 29.52 mL/min Estimated GFR (MDRD) 39 L (>60) Glucose 103 (74-106) mg/dL Calcium 8.6 (8.5-10.1) mg/dL Med Orders - Current: Current Medications Acetaminophen (Tylenol) 650 mg PO Q4H PRN PRN Reason: analgesia/fever Last Admin: 09/11/17 16:08 Dose: 650 mg Albuterol/Ipratropium (Duoneb 3.0-0.5 Mg/3 Ml) 3 ml NEB Q4H PRN PRN Reason: Dyspnea Last Admin: 09/12/17 05:46 Dose: 3 ml Diltiazem HCl (Cardizem Sr) 60 mg PO Q6H [facility] Furosemide (Lasix) 40 mg PO DAILY [facility] Last Admin: 09/12/17 09:16 Dose: 40 mg Levofloxacin/Dextrose 250 mg/ (Premix) 50 mls @ 50 mls/hr IV Q24H [facility] Last Admin: 09/11/17 21:50 Dose: 50 mls/hr Lorazepam (Ativan) 0.5 mg PO DAILY [facility] Last Admin: 09/12/17 09:18 Dose: 0.5 mg Lorazepam (Ativan) 0.5 mg IVPUSH Q2H PRN PRN Reason: Agitation Last Admin: 09/12/17 01:49 Dose: 0.5 mg Metoprolol Tartrate (Lopressor) 25 mg PO BID [facility] Last Admin: 09/12/17 09:14 Dose: 25 mg Risperidone (Risperidal) 0.25 mg PO DAILY [facility] Last Admin: 09/12/17 09:14 Dose: 0.25 mg Sertraline HCl (Zoloft) 50 mg PO DAILY [facility] Last Admin: 09/12/17 09:16 Dose: 50 mg Discontinued Medications Azithromycin (Zithromax) 500 mg PO DAILY [facility] Stop: 09/10/17 09:01 Last Admin: 09/10/17 08:57 Dose: 500 mg Azithromycin (Zithromax) 250 mg PO DAILY [facility] Stop: 09/14/17 09:01 Last Admin: 09/11/17 08:17 Dose: 250 mg Diltiazem HCl (Diltiazem) 20 mg IVPUSH ONETIME ONE Stop: 09/11/17 22:05 Last Admin: 09/11/17 22:21 Dose: 20 mg Diltiazem HCl (Diltiazem) 5 mg IVPUSH ONETIME ONE Stop: 09/12/17 02:40 Last Admin: 09/12/17 03:00 Dose: 5 mg Levofloxacin/Dextrose 250 mg/ (Premix) 50 mls @ 50 mls/hr IV Q24H [facility] Last Admin: 09/10/17 03:41 Dose: 50 mls/hr Diltiazem HCl 100 mg/ Sodium (Chloride) 100 mls @ 5 mls/hr IV TITRATE SHENA; 5 MG /HR PRN Reason: Protocol Last Admin: 09/12/17 06:43 Dose: 15 mg/hr, 15 mls/hr Sodium Chloride (Normal Saline) 500 mls @ 0 mls/hr IV ASDIRECTED [facility] PRN Reason: KVO Metoprolol Tartrate (Lopressor) 25 mg PO ONETIME ONE Stop: 09/10/17 05:49 Last Admin: 09/10/17 06:01 Dose: 25 mg Oseltamivir Phosphate (Tamiflu) 75 mg PO ONETIME ONE Stop: 09/10/17 00:07 Last Admin: 09/10/17 00:16 Dose: 75 mg Oseltamivir Phosphate (Tamiflu) 75 mg PO BID [facility] Last Admin: 09/10/17 08:57 Dose: 75 mg Oseltamivir Phosphate (Tamiflu) 30 mg PO DAILY [facility] Last Admin: 09/11/17 08:19 Dose: 30 mg Warfarin Sodium (Coumadin) 2.5 mg PO DAILY@1300 [facility] Last Admin: 09/11/17 12:26 Dose: 2.5 mg - Exam Quality Assessment: DVT Prophylaxis General: Alert, Oriented, Cooperative, No Acute Distress Lungs: Clear to Auscultation, Normal Respiratory Effort. No: Crackles, Rales, Rhonchi, Rub, Wheezing Cardiovascular: No Murmurs, Irregular Rhythm, Tachycardia GI/Abdominal Exam: Normal Bowel Sounds, Soft, Non-Tender, No Organomegaly, No Distention Extremities: Non-Tender, No Pedal Edema Skin: Warm, Dry, Intact - Problem List Review Problem List Initiated/Reviewed/Updated: Yes - My Orders Last 24 Hours: My Active Orders 09/12/17 01:35 LORazepam [Ativan] 0.5 mg IVPUSH Q2H PRN 09/12/17 09:00 Furosemide [Lasix] 40 mg PO DAILY 09/12/17 10:03 Convert IV to Saline Lock [OM.PC] Routine 09/12/17 10:04 Warfarin [Coumadin] 5 mg PO ONETIME ONE 09/12/17 10:15 Diltiazem [Cardizem SR] 60 mg PO Q6H 09/13/17 05:00 BASIC METABOLIC PANEL,BMP [CHEM] Timed CBC WITH AUTO DIFF [HEME] Timed INR,PT,PROTHROMBIN TIME [COAG] Timed - Plan Plan:: ASSESSMENT AND PLAN PNEUMONIA-fairly stable since admission with no evidence of sepsis or significant respiratory compromise. Continues to have moderate temperature elevations -Blood cultures pending -Continue IV antibiotic therapy with levofloxacin ATRIAL FIBRILLATION WITH RAPID VENTRICULAR RESPONSE- rate elevated, INR remained subtherapeutic -Convert from IV Cardizem to oral 60 mg by mouth every 6 hours -Continue beta mitch therapy -Warfarin 5 mg by mouth today -Recheck INR in a.m. CHRONIC KIDNEY DISEASE STAGE III-renal function stable from admission -Continue to closely monitor urine output and renal function [facility]IA PALLIATIVE CARE- is willing to except antibiotic therapy but does not want to consider intubation or mechanical ventilation MAINTENANCE ISSUES -DVT prophylaxis; SCUDs -GI prophylaxis; not indicated -Mcgee catheter; not indicated -Nutrition; regular diet -Nicotine dependence; not required CODE STATUS-DNR ADMISSION STATUS-patient will be admitted to inpatient status, expect at least a 2 night hospital stay for evaluation and management of problems as outlined above. At the time of this admission I do not reasonably expected evaluation and management of this problem will require more than a 96 hour hospital stay. DISPOSITION-anticipate discharge to home after the hospital stay. PRIMARY CARE PROVIDER-
[2017-09-12] MEDS: Diltiazem IR 30 MG Tab PO SCH ×3 (11:05→21:22)
[2017-09-12] MEDS ORDERED: Warfarin 5 MG Tab PO ONE (12:00)
[2017-09-12] MEDS: Levofloxacin/Dextrose 5%-Water 250 MG in Premix Bag 1 BAG IV SCH (21:23)
[2017-09-13] MEDS: LORazepam 2 MG/ML MDV IVPUSH PRN (00:42)
[2017-09-13] MEDS: Albuterol/Ipratropium 3.0-0.5 MG/3 ML Neb Soln NEB PRN ×2 (03:36→09:12)
[2017-09-13] MEDS: Diltiazem IR 30 MG Tab PO SCH (03:36)
[2017-09-13] MEDS ORDERED: Potassium Chloride 40 MEQ in Premix Bag 1 BAG IV ONE (08:11)
[2017-09-13] MEDS: Diltiazem 120 MG Cap.CD PO SCH (08:54)
[2017-09-13] MEDS: Metoprolol Tartrate 50 MG Tab PO SCH ×2 (08:54→20:20)
[2017-09-13] MEDS: risperiDONE 0.25 MG Tab PO SCH (08:56)
[2017-09-13] MEDS: LORazepam 0.5 MG Tab PO SCH (08:56)
[2017-09-13] MEDS: Furosemide 40 MG Tab PO SCH (08:56)
[2017-09-13] MEDS: Sertraline 50 MG Tab PO SCH (08:57)
[2017-09-13] MEDS ORDERED: Potassium Chloride 20 MEQ Tab.ER PO ONE (09:00)
--- NOTE | 2017-09-13 09:16 | PCM.PN ---
- General Info Date of Service: 09/13/17 Subjective Update: This patient has been stable over the past 24 hours, rate control of atrial fibrillation has improved and she is tolerating the oral Cardizem. Rates intermittently are elevated and we'll plan to increase her dose of metoprolol this morning. Respiratory status has been stable and it seems that her cough is improving over the past few days. Vital signs have been stable other than intermittent elevation in heart rate and she has remained afebrile. Functional Status: Reports: Pain Controlled, Tolerating Diet, Ambulating, Urinating - Review of Systems General: Reports: Weakness. Denies: Fever, Chills Pulmonary: Reports: Cough, Wheezing. Denies: Shortness of Breath, Pleuritic Chest Pain, Sputum, Hemoptysis Cardiovascular: Reports: Dyspnea on Exertion. Denies: Chest Pain, Palpitations , Orthopnea, PND, Edema Gastrointestinal: Reports: No Symptoms - Patient Data Vitals - Most Recent: Last Vital Signs Temp 98.8 F 09/13/17 04:00 Pulse 119 H 09/13/17 08:54 Resp 21 H 09/13/17 06:00 BP 110/63 09/13/17 08:54 Pulse Ox 95 09/13/17 06:00 Weight - Most Recent: 243 lb 0.002 oz I&O - Last 24 Hours: Intake & Output 09/12/17 09/13/17 09/13/17 22:59 06:59 14:59 Intake Total 360 440 Balance 360 440 Lab Results Last 24 Hours: Laboratory Results - last 24 hr 09/13/17 09/13/17 09/13/17 Range/Units 05:00 05:00 05:00 WBC 7.4 (4.5-11.0) K/uL RBC 3.87 (3.30-5.50) M/uL Hgb 11.5 L (12.0-15.0) g/dL Hct 35.8 L (36.0-48.0) % MCV 93 (80-98) fL MCH 30 (27-31) pg MCHC 32 (32-36) % Plt Count 191 (150-400) K/uL Neut % (Auto) 62 (36-66) % Lymph % (Auto) 26 (24-44) % [place] % (Auto) 8 H (2-6) % Eos % (Auto) 3 (2-4) % Baso % (Auto) 1 (0-1) % PT 14.9 H (9.5-12.0) sec INR 1.37 H (0.80-1.20) Sodium 140 (140-148) mmol/L Potassium 3.2 L (3.6-5.2) mmol/L Chloride 106 (100-108) mmol/L Carbon Dioxide 25 (21-32) mmol/L Anion Gap 12.2 (5.0-14.0) mmol/L BUN 26 H (7-18) mg/dL Creatinine 1.4 H (0.6-1.0) mg/dL Est Cr Clr Drug Dosing 27.41 mL/min Estimated GFR (MDRD) 36 L (>60) Glucose 117 H (74-106) mg/dL Calcium 8.3 L (8.5-10.1) mg/dL Med Orders - Current: Current Medications Acetaminophen (Tylenol) 650 mg PO Q4H PRN PRN Reason: analgesia/fever Last Admin: 09/11/17 16:08 Dose: 650 mg Albuterol/Ipratropium (Duoneb 3.0-0.5 Mg/3 Ml) 3 ml NEB Q4H PRN PRN Reason: Dyspnea Last Admin: 09/13/17 03:36 Dose: 3 ml Diltiazem HCl (Cardizem Cd) 240 mg PO DAILY [facility] Last Admin: 09/13/17 08:54 Dose: 240 mg Furosemide (Lasix) 40 mg PO DAILY [facility] Last Admin: 09/13/17 08:56 Dose: 40 mg Levofloxacin/Dextrose 250 mg/ (Premix) 50 mls @ 50 mls/hr IV Q24H [facility] Last Admin: 09/12/17 21:23 Dose: 50 mls/hr Potassium Chloride 20 meq/Lidocaine HCl 2 ml/ Sodium Chloride 112 mls @ 56 mls/ hr IV Q2H [facility] Stop: 09/13/17 13:29 Lorazepam (Ativan) 0.5 mg PO DAILY [facility] Last Admin: 09/13/17 08:56 Dose: 0.5 mg Lorazepam (Ativan) 0.5 mg IVPUSH Q2H PRN PRN Reason: Agitation Last Admin: 09/13/17 00:42 Dose: 0.5 mg Metoprolol Tartrate (Lopressor) 50 mg PO BID [facility] Last Admin: 09/13/17 08:54 Dose: 50 mg Risperidone (Risperidal) 0.25 mg PO DAILY [facility] Last Admin: 09/13/17 08:56 Dose: 0.25 mg Sertraline HCl (Zoloft) 50 mg PO DAILY [facility] Last Admin: 09/13/17 08:57 Dose: 50 mg Warfarin Sodium (Coumadin) 5 mg PO ONETIME ONE Stop: 09/13/17 13:01 Discontinued Medications Azithromycin (Zithromax) 500 mg PO DAILY [facility] Stop: 09/10/17 09:01 Last Admin: 09/10/17 08:57 Dose: 500 mg Azithromycin (Zithromax) 250 mg PO DAILY [facility] Stop: 09/14/17 09:01 Last Admin: 09/11/17 08:17 Dose: 250 mg Diltiazem HCl (Diltiazem) 20 mg IVPUSH ONETIME ONE Stop: 09/11/17 22:05 Last Admin: 09/11/17 22:21 Dose: 20 mg Diltiazem HCl (Diltiazem) 5 mg IVPUSH ONETIME ONE Stop: 09/12/17 02:40 Last Admin: 09/12/17 03:00 Dose: 5 mg Diltiazem HCl (Cardizem) 60 mg PO Q6H [facility] Last Admin: 09/13/17 03:36 Dose: 60 mg Levofloxacin/Dextrose 250 mg/ (Premix) 50 mls @ 50 mls/hr IV Q24H [facility] Last Admin: 09/10/17 03:41 Dose: 50 mls/hr Diltiazem HCl 100 mg/ Sodium (Chloride) 100 mls @ 5 mls/hr IV TITRATE SHENA; 5 MG /HR PRN Reason: Protocol Last Admin: 09/12/17 06:43 Dose: 15 mg/hr, 15 mls/hr Sodium Chloride (Normal Saline) 500 mls @ 0 mls/hr IV ASDIRECTED [facility] PRN Reason: KVO Metoprolol Tartrate (Lopressor) 25 mg PO BID [facility] Last Admin: 09/12/17 21:23 Dose: 25 mg Metoprolol Tartrate (Lopressor) 25 mg PO ONETIME ONE Stop: 09/10/17 05:49 Last Admin: 09/10/17 06:01 Dose: 25 mg Oseltamivir Phosphate (Tamiflu) 75 mg PO ONETIME ONE Stop: 09/10/17 00:07 Last Admin: 09/10/17 00:16 Dose: 75 mg Oseltamivir Phosphate (Tamiflu) 75 mg PO BID [facility] Last Admin: 09/10/17 08:57 Dose: 75 mg Oseltamivir Phosphate (Tamiflu) 30 mg PO DAILY [facility] Last Admin: 09/11/17 08:19 Dose: 30 mg Potassium Chloride (Klor-Con M20) 40 meq PO ONETIME ONE Stop: 09/13/17 09:01 Last Admin: 09/13/17 08:53 Dose: 40 meq Warfarin Sodium (Coumadin) 2.5 mg PO DAILY@1300 [facility] Last Admin: 09/11/17 12:26 Dose: 2.5 mg Warfarin Sodium (Coumadin) 5 mg PO ONETIME ONE Stop: 09/12/17 12:01 Last Admin: 09/12/17 11:09 Dose: 5 mg - Exam Quality Assessment: Supplemental Oxygen, DVT Prophylaxis General: Alert, Cooperative, No Acute Distress Lungs: Normal Respiratory Effort, Wheezing. No: Rales, Rhonchi, Rub, Stridor Cardiovascular: No Murmurs, Irregular Rhythm, Tachycardia GI/Abdominal Exam: Normal Bowel Sounds, Soft, Non-Tender, No Organomegaly, No Distention Extremities: Non-Tender, No Pedal Edema Skin: Warm, Dry, Intact - Problem List Review Problem List Initiated/Reviewed/Updated: Yes - My Orders Last 24 Hours: My Active Orders 09/12/17 09:00 Furosemide [Lasix] 40 mg PO DAILY 09/12/17 10:03 Convert IV to Saline Lock [OM.PC] Routine 09/13/17 09:00 Diltiazem [Cardizem CD] 240 mg PO DAILY Metoprolol Tartrate [Lopressor] 50 mg PO BID 09/13/17 09:30 Potassium Chloride 20 meq Lidocaine 1% [Xylocaine 1%] 2 ml Sodium Chloride 0.9 % [Normal Saline] 100 ml IV Q2H 09/13/17 13:00 Warfarin [Coumadin] 5 mg PO ONETIME ONE 09/14/17 05:00 BASIC METABOLIC PANEL,BMP [CHEM] Timed CBC WITH AUTO DIFF [HEME] Timed 09/14/17 05:11 INR,PT,PROTHROMBIN TIME [COAG] AM - Plan Plan:: ASSESSMENT AND PLAN PNEUMONIA-fairly stable since admission with no evidence of sepsis or significant respiratory compromise. Continues to have moderate temperature elevations -Blood cultures negative thus far -Continue IV antibiotic therapy with levofloxacin ATRIAL FIBRILLATION WITH RAPID VENTRICULAR RESPONSE- rate intermittently elevated, INR remained subtherapeutic -Diltiazem CD 240 mg by mouth daily -Increase metoprolol to 50 mg twice daily -Warfarin 5 mg by mouth today -Recheck INR in a.m. CHRONIC KIDNEY DISEASE STAGE III-renal function stable from admission -Continue to closely monitor urine output and renal function DEMENTIA PALLIATIVE CARE- is willing to except antibiotic therapy but does not want to consider intubation or mechanical ventilation MAINTENANCE ISSUES -DVT prophylaxis; SCUDs -GI prophylaxis; not indicated -Mcgee catheter; not indicated -Nutrition; regular diet -Nicotine dependence; not required CODE STATUS-DNR ADMISSION STATUS-patient will be admitted to inpatient status, expect at least a 2 night hospital stay for evaluation and management of problems as outlined above. At the time of this admission I do not reasonably expected evaluation and management of this problem will require more than a 96 hour hospital stay. DISPOSITION-anticipate discharge to home after the hospital stay. PRIMARY CARE PROVIDER-
[2017-09-13] MEDS: Potassium Chloride 20 MEQ, Lidocaine 1% 2 ML in Sodium Chloride 0.9% 100 ML IV SCH ×2 (11:33→14:00)
[2017-09-13] MEDS ORDERED: Warfarin 5 MG Tab PO ONE (13:00)
[2017-09-13] MEDS: Levofloxacin/Dextrose 5%-Water 250 MG in Premix Bag 1 BAG IV SCH (21:23)
[2017-09-14] MEDS: LORazepam 0.5 MG Tab PO SCH (08:09)
[2017-09-14] MEDS: Sertraline 50 MG Tab PO SCH (08:10)
[2017-09-14] MEDS: Furosemide 40 MG Tab PO SCH (08:10)
[2017-09-14] MEDS: Metoprolol Tartrate 50 MG Tab PO SCH (08:10)
[2017-09-14] MEDS: Diltiazem 120 MG Cap.CD PO SCH (08:10)
[2017-09-14] MEDS: risperiDONE 0.25 MG Tab PO SCH (08:10)
[2017-09-14] MEDS ORDERED: Digoxin 500 MCG/2 ML Amp IVPUSH ONE (09:00)
--- NOTE | 2017-09-14 10:09 | PCM.DCSUM1 ---
Discharge Summary - Hospital Course Brief History: This patient is an 81-year-old woman who was admitted through the emergency department with progressive weakness and fever secondary to pneumonia. - Discharge Data Discharge Date: 09/14/17 Discharge Disposition: DC/[facility] to [facility] Condition: Fair - Discharge Diagnosis/Problem(s) (1) Atrial fibrillation with rapid ventricular response SNOMED Code(s): 017867432579361 ICD Code: I48.91 - UNSPECIFIED ATRIAL FIBRILLATION Status: Acute Current Visit: Yes (2) CKD (chronic kidney disease) stage 3, GFR 30-59 ml/min SNOMED Code(s): 390796126 ICD Code: N18.3 - CHRONIC KIDNEY DISEASE, STAGE 3 (MODERATE) Status: Acute Current Visit: Yes (3) Pneumonia SNOMED Code(s): 574938331 ICD Code: J18.9 - PNEUMONIA, UNSPECIFIED ORGANISM Status: Acute Current Visit: Yes (4) Dementia SNOMED Code(s): 82345115 ICD Code: F03.90 - UNSPECIFIED DEMENTIA WITHOUT BEHAVIORAL DISTURBANCE Status: Acute Current Visit: Yes (5) Palliative care status SNOMED Code(s): 607718158 ICD Code: Z51.5 - ENCOUNTER FOR PALLIATIVE CARE Status: Acute Current Visit: Yes - Patient Summary/Data Consults: Consultations 09/13/17 13:50 Consult to Physical Therapy [PT Evaluation and Treatment] [CONS] Routine Please Evaluate and Treat. PT Reason for Consult: weakness This query below is only for informational purposes and is not editable. Admission Diagnosis/Problem: Pneumonia Hospital Course: This patient is an 81-year-old woman who resides at local assisted living facility and has a history of dementia. Over the past few months she has become progressively more weak to the point that she is been unable to ambulate. For a few days prior to admission was noted to develop progressive weakness and lethargy with fever. She was brought into the emergency department for evaluation, white blood cell count was elevated and she was noted to have temperature elevation. She had a significant cough, chest x-ray showed no obvious infiltrate on initial assessment but clinically it was felt that she had pneumonia. Blood cultures were obtained at the time of admission and she was started on antibiotic therapy with levofloxacin and azithromycin. IV fluids were given for hydration. With this management she slowly improved over the next several days, by the time of discharge cough it essentially resolved and she was afebrile with normalization of her white blood cell count. There was no evidence of significant sepsis on admission or during the hospitalization. She was recognized as palliative care status because of previously expressed wishes for no resuscitation. Hospital course was complicated by atrial fibrillation with rapid ventricular response, she initially was treated with IV Cardizem and then transitioned to oral Cardizem. She will be discharged on Cardizem CD 240 mg by mouth daily. Her dose of metoprolol was also increased from 25 mg twice daily to 50 mg twice daily. INR was monitored regularly through the hospital stay because of her long-term oral anticoagulation and remains subtherapeutic. She will be discharged to home on 5 mg warfarin daily and a follow-up INR will be obtained in 3 days. Blood cultures remained negative throughout the hospitalization. Activity will be as tolerated and she will resume her usual diet. Follow-up appointment will be scheduled with her primary care provider within one week. - Patient Instructions Diet: Usual Diet as Tolerated Activity: As Tolerated Other/Special Instructions: Lab tests to be drawn Sunday, September 17, and INR. Please schedule follow-up appointment with primary care provider within one week. - Discharge Plan Prescriptions/Med Rec: Diltiazem HCl [Diltiazem 24Hr Cd] 240 mg PO DAILY #30 cap.er.24h Levofloxacin [Levaquin] 250 mg PO Q24H #3 tablet Metoprolol Tartrate [Lopressor] 50 mg PO BID #60 tablet Home Medications: Home Meds Albuterol Sulfate [Ventolin Hfa] 2 puff INH QID PRN 09/08/17 [History] Cholestyramine (With Sugar) [Questran Powder] 9 gr PO BID 09/08/17 [History] Furosemide 1 tab PO DAILY 09/08/17 [History] LORazepam 0.5 tab PO DAILY 09/08/17 [History] Sertraline [Zoloft] 1 tab PO DAILY 09/08/17 [History] Vit D3/Folic Acid/B2/B6/B12 [Folgard Tablet] 1 tab PO DAILY 09/08/17 [History] risperiDONE 1 tab PO DAILY 09/08/17 [History] Diltiazem HCl [Diltiazem 24Hr Cd] 240 mg PO DAILY #30 cap.er.24h 09/14/17 [Rx] Levofloxacin [Levaquin] 250 mg PO Q24H #3 tablet 09/14/17 [Rx] Metoprolol Tartrate [Lopressor] 50 mg PO BID #60 tablet 09/14/17 [Rx] Warfarin Sodium [Jantoven] 5 mg PO DAILY #0 09/14/17 [Rx] Referrals: Shital Dillard, VERITO [Primary Care Provider] - - Patient Data Vitals - Most Recent: Last Vital Signs Temp 97 F 09/14/17 08:00 Pulse 120 H 09/14/17 08:10 Resp 16 09/14/17 08:00 BP 169/68 H 09/14/17 08:10 Pulse Ox 92 L 09/14/17 08:00 Weight - Most Recent: 243 lb 0.002 oz I&O - Last 24 hours: Intake & Output 09/13/17 09/14/17 09/14/17 22:59 06:59 14:59 Intake Total 290 400 Output Total 151 Balance 139 400 Lab Results - Last 24 hrs: Laboratory Results - last 24 hr 09/14/17 09/14/17 09/14/17 Range/Units 05:45 05:45 05:45 WBC 6.7 (4.5-11.0) K/uL RBC 4.03 (3.30-5.50) M/uL Hgb 12.3 (12.0-15.0) g/dL Hct 37.2 (36.0-48.0) % MCV 92 (80-98) fL MCH 31 (27-31) pg MCHC 33 (32-36) % Plt Count 231 (150-400) K/uL Neut % (Auto) 60 (36-66) % Lymph % (Auto) 25 (24-44) % [place] % (Auto) 10 H (2-6) % Eos % (Auto) 5 H (2-4) % Baso % (Auto) 1 (0-1) % PT 15.4 H (9.5-12.0) sec INR 1.42 H (0.80-1.20) Sodium 143 (140-148) mmol/L Potassium 3.8 (3.6-5.2) mmol/L Chloride 109 H (100-108) mmol/L Carbon Dioxide 25 (21-32) mmol/L Anion Gap 12.8 (5.0-14.0) mmol/L BUN 27 H (7-18) mg/dL Creatinine 1.5 H (0.6-1.0) mg/dL Est Cr Clr Drug Dosing 25.58 mL/min Estimated GFR (MDRD) 33 L (>60) Glucose 98 (74-106) mg/dL Calcium 8.8 (8.5-10.1) mg/dL Med Orders - Current: Current Medications Acetaminophen (Tylenol) 650 mg PO Q4H PRN PRN Reason: analgesia/fever Last Admin: 09/11/17 16:08 Dose: 650 mg Albuterol/Ipratropium (Duoneb 3.0-0.5 Mg/3 Ml) 3 ml NEB Q4H PRN PRN Reason: Dyspnea Last Admin: 09/13/17 09:12 Dose: 3 ml Diltiazem HCl (Cardizem Cd) 240 mg PO DAILY [facility] Last Admin: 09/14/17 08:10 Dose: 240 mg Furosemide (Lasix) 40 mg PO DAILY [facility] Last Admin: 09/14/17 08:10 Dose: 40 mg Levofloxacin/Dextrose 250 mg/ (Premix) 50 mls @ 50 mls/hr IV Q24H [facility] Last Admin: 09/13/17 21:23 Dose: 50 mls/hr Lorazepam (Ativan) 0.5 mg PO DAILY [facility] Last Admin: 09/14/17 08:09 Dose: 0.5 mg Lorazepam (Ativan) 0.5 mg IVPUSH Q2H PRN PRN Reason: Agitation Last Admin: 09/13/17 00:42 Dose: 0.5 mg Metoprolol Tartrate (Lopressor) 50 mg PO BID [facility] Last Admin: 09/14/17 08:10 Dose: 50 mg Risperidone (Risperidal) 0.25 mg PO DAILY [facility] Last Admin: 09/14/17 08:10 Dose: 0.25 mg Sertraline HCl (Zoloft) 50 mg PO DAILY [facility] Last Admin: 09/14/17 08:10 Dose: 50 mg Warfarin Sodium (Coumadin) 7.5 mg PO ONETIME ONE Stop: 09/14/17 13:01 Discontinued Medications Azithromycin (Zithromax) 500 mg PO DAILY [facility] Stop: 09/10/17 09:01 Last Admin: 09/10/17 08:57 Dose: 500 mg Azithromycin (Zithromax) 250 mg PO DAILY [facility] Stop: 09/14/17 09:01 Last Admin: 09/11/17 08:17 Dose: 250 mg Digoxin (Lanoxin) 250 mcg IVPUSH ONETIME ONE Stop: 09/14/17 09:01 Last Admin: 09/14/17 10:00 Dose: Not Given Diltiazem HCl (Diltiazem) 20 mg IVPUSH ONETIME ONE Stop: 09/11/17 22:05 Last Admin: 09/11/17 22:21 Dose: 20 mg Diltiazem HCl (Diltiazem) 5 mg IVPUSH ONETIME ONE Stop: 09/12/17 02:40 Last Admin: 09/12/17 03:00 Dose: 5 mg Diltiazem HCl (Cardizem) 60 mg PO Q6H [facility] Last Admin: 09/13/17 03:36 Dose: 60 mg Levofloxacin/Dextrose 250 mg/ (Premix) 50 mls @ 50 mls/hr IV Q24H [facility] Last Admin: 09/10/17 03:41 Dose: 50 mls/hr Diltiazem HCl 100 mg/ Sodium (Chloride) 100 mls @ 5 mls/hr IV TITRATE SHENA; 5 MG /HR PRN Reason: Protocol Last Admin: 09/12/17 06:43 Dose: 15 mg/hr, 15 mls/hr Sodium Chloride (Normal Saline) 500 mls @ 0 mls/hr IV ASDIRECTED SHENA PRN Reason: KVO Potassium Chloride 20 meq/Lidocaine HCl 2 ml/ Sodium Chloride 112 mls @ 56 mls/ hr IV Q2H [facility] Stop: 09/13/17 13:29 Last Admin: 09/13/17 14:00 Dose: 56 mls/hr Metoprolol Tartrate (Lopressor) 25 mg PO BID [facility] Last Admin: 09/12/17 21:23 Dose: 25 mg Metoprolol Tartrate (Lopressor) 25 mg PO ONETIME ONE Stop: 09/10/17 05:49 Last Admin: 09/10/17 06:01 Dose: 25 mg Oseltamivir Phosphate (Tamiflu) 75 mg PO ONETIME ONE Stop: 09/10/17 00:07 Last Admin: 09/10/17 00:16 Dose: 75 mg Oseltamivir Phosphate (Tamiflu) 75 mg PO BID [facility] Last Admin: 09/10/17 08:57 Dose: 75 mg Oseltamivir Phosphate (Tamiflu) 30 mg PO DAILY [facility] Last Admin: 09/11/17 08:19 Dose: 30 mg Potassium Chloride (Klor-Con M20) 40 meq PO ONETIME ONE Stop: 09/13/17 09:01 Last Admin: 09/13/17 08:53 Dose: 40 meq Warfarin Sodium (Coumadin) 2.5 mg PO DAILY@1300 [facility] Last Admin: 09/11/17 12:26 Dose: 2.5 mg Warfarin Sodium (Coumadin) 5 mg PO ONETIME ONE Stop: 09/12/17 12:01 Last Admin: 09/12/17 11:09 Dose: 5 mg Warfarin Sodium (Coumadin) 5 mg PO ONETIME ONE Stop: 09/13/17 13:01 Last Admin: 09/13/17 14:01 Dose: 5 mg *Q Meaningful Use (DIS) - VTE *Q VTE Criteria *Q: - Stroke *Q Stroke Criteria *Q: - AMI *Q AMI Criteria *Q:
[2017-09-14] MEDS ORDERED: Warfarin 2.5 MG Tab PO ONE (11:00)
[2017-09-14 11:24] VITALS: BP 117/75
== END 2017-09-14 12:02 | DRG 195 ==
LOC: JP.ED 23:08 → UNDOADMIN 09-10 02:43 → JP.ICU 09-10 02:43 → UNDOADMIN 09-11 22:29 → UNDODISIN 09-14 12:02
PROVIDERS: ADMIT Family Medicine; ATTEND Hospitalist
DX: J18.9 Pneumonia, unspecified organism (principal); G30.9 Alzheimer's disease, unspecified; F02.80 Dementia in other diseases classified elsewhere, unspecified severity, without behavioral disturbance, psychotic disturbance, mood disturbance, and anxiety; I48.2 Chronic atrial fibrillation; R32 Unspecified urinary incontinence; I12.9 Hypertensive chronic kidney disease with stage 1 through stage 4 chronic kidney disease, or unspecified chronic kidney disease; N18.3 Chronic kidney disease, stage 3 (moderate); Z51.5 Encounter for palliative care; R50.9 Fever, unspecified; R05 Cough; Z79.01 Long term (current) use of anticoagulants
CPT/HCPCS: 36415 ×2; 71010 ×2; 80048 ×3; 83605; 83735; 84484; 85025; 85027; 85610; 93005; 93010; 94640 ×2; 99285; A9270 ×10; J1956; J3490 ×2; J7030; J7620 ×2; 70450; 70450-26; 96374; 99283; J2060; J3480

== ENCOUNTER 2018-04-27 19:23 | Emergency (ER) | payer MEDICARE, BC ==
[2018-04-27] MEDS ORDERED: Acetaminophen 500 MG Tab PO ONE (19:48)
[2018-04-27] MEDS ORDERED: Lactated Ringers 1,000 ML IV ONE (19:50)
--- NOTE | 2018-04-27 19:59 | EDM.PDOC ---
ED HPI GENERAL MEDICAL PROBLEM - General Chief Complaint: Fever Stated Complaint: [facility] Time Seen by Provider: 04/27/18 19:45 Source of Information: Reports: EMS, Family, Old Records History Limitations: Reports: Other (severe dementia) - History of Present Illness INITIAL COMMENTS - FREE TEXT/NARRATIVE: 82 [address] [facility] patient with severe dementia was sent via EMS for fever. A UA was reportedly sent by the [facility] this morning, the results were not sent with EMS. Family has noted that she is more flushed and weak. No coughing. No vomiting. Pulse oximeter was 94% in 09/28 on Rm air. Onset: Gradual Onset Date: 04/27/18 Duration: Hour(s): Location: Reports: Generalized Quality: Reports: Other (no pain reported.) Severity: Moderate Improves with: Reports: None Worsens with: Reports: Other (? time) Context: Reports: Other (morbid obesity, sedentary) Associated Symptoms: Reports: Fever/Chills, Weakness. Denies: Cough, Diaphoresis, Headaches, Nausea/Vomiting, Rash, Shortness of Breath Treatments SENIOR INVESTMENT MANAGER: Reports: Other (see below) (none) - Related Data Allergies Allergy/AdvReac Type Severity Reaction Status Date / Time No Known Allergies Allergy Verified 04/27/18 19:54 Home Meds: Home Meds Albuterol Sulfate [Ventolin Hfa] 2 puff INH QID PRN 09/08/17 [History] Cholestyramine (With Sugar) [Questran Powder] 9 gr PO BID 09/08/17 [History] Furosemide 40 mg PO DAILY 09/08/17 [History] Sertraline [Zoloft] 50 mg PO DAILY 09/08/17 [History] Vit D3/Folic Acid/B2/B6/B12 [Folgard Tablet] 1 tab PO DAILY 09/08/17 [History] risperiDONE 0.25 mg PO DAILY 09/08/17 [History] Diltiazem HCl [Diltiazem 24Hr Cd] 240 mg PO DAILY #30 cap.er.24h 09/14/17 [Rx] Levofloxacin [Levaquin] 250 mg PO Q24H #3 tablet 09/14/17 [Rx] Warfarin Sodium [Jantoven] 5 mg PO DAILY #0 09/14/17 [Rx] LORazepam [Ativan] 0.25 mg PO DAILY 04/27/18 [History] Metoprolol Tartrate [Lopressor] 100 mg PO BID 04/27/18 [History] Warfarin [Coumadin] 7.5 mg PO ASDIRECTED 04/27/18 [History] Past Medical History Cardiovascular History: Reports: Afib, High Cholesterol, Hypertension, Other ( See Below) Other Cardiovascular History: hx of paroxysmal supraventricular tachycardia Respiratory History: Reports: Other (See Below) Other Respiratory History: reactive airway disease Genitourinary History: Reports: Chronic Renal Insuffiency, Renal Disease, Urinary Incontinence ORGAN GRINDER History: Reports: Musculoskeletal History: Reports: Back Pain, Chronic Neurological History: Reports: Alzheimers Disease Psychiatric History: Reports: Dementia, Depression Endocrine/Metabolic History: Reports: Obesity/BMI 30+, Osteopenia, Osteoporosis Oncologic (Cancer) History: Reports: Basal Cell Carcinoma Dermatologic History: Reports: Venous Stasis Dermatitis - Past Surgical History GI Surgical History: Reports: Appendectomy, Cholecystectomy Neurological Surgical History: Reports: Lumbar Spine Musculoskeletal Surgical History: Reports: Knee Replacement Social & Family History - Caffeine Use Caffeine Use: Reports: None ED ROS GENERAL - Review of Systems Review Of Systems: See Below Constitutional: Reports: Fever, Malaise, Weakness HEENT: Reports: No Symptoms Respiratory: Reports: No Symptoms Cardiovascular: Reports: No Symptoms GI/Abdominal: Reports: No Symptoms : Reports: No Symptoms Musculoskeletal: Reports: No Symptoms Skin: Reports: No Symptoms Neurological: Reports: No Symptoms ED EXAM, SEPSIS - Physical Exam Exam: See Below Exam Limited By: No Limitations General Appearance: Alert, WD/WN, No Apparent Distress, Obese Eye Exam: Bilateral Eye: Normal Inspection Ears: Normal External Exam, Normal Canal Nose: Normal Inspection, Normal Mucosa, No Blood Throat/Mouth: Normal Inspection, Normal Lips, Normal Oropharynx, Normal Voice, No Airway Compromise Head: Atraumatic, Normocephalic Neck: Normal Inspection, Supple Respiratory/Chest: No Respiratory Distress, Lungs Clear, Normal Breath Sounds, No Accessory Muscle Use Cardiovascular: No Edema, Tachycardia, Irregularly Irregular GI/Abdominal Exam: Normal Bowel Sounds, Soft, Non-Tender, No Distention Back: Normal Inspection. No: CVA Tenderness (R), CVA Tenderness (L) Extremities: Normal Inspection, Normal Range of Motion, Non-Tender, No Pedal Edema Neurological: Alert, CN II-XII Intact, No Motor/Sensory Deficits, Confused Psychiatric: Normal Affect, Normal Mood Skin: Warm, Dry, Intact, Normal Color, No Rash, Other (facial flushing) Lymphatic: Bilateral: No Adenopathy Course - Vital Signs Last Recorded V/S: Last Vital Signs Temp 36.2 C 04/27/18 23:36 Pulse 104 H 04/27/18 23:36 Resp 20 04/27/18 23:36 BP 133/84 04/27/18 23:36 Pulse Ox 94 L 04/27/18 23:36 - Orders/Labs/Meds Orders: Active Orders 24 hr Category Date Time Status Chest 1V Frontal [CR] Stat Exams 04/27/18 20:56 Taken CULTURE BLOOD [BC] Stat Lab 04/27/18 20:10 Received CULTURE BLOOD [BC] Stat Lab 04/27/18 21:15 Received Labs: Laboratory Tests 04/27/18 04/27/18 04/27/18 Range/Units 19:49 20:10 20:10 WBC 14.0 H (4.5-11.0) K/uL RBC 4.76 (3.30-5.50) M/uL Hgb 14.8 D (12.0-15.0) g/dL Hct 45.7 (36.0-48.0) % MCV 96 (80-98) fL MCH 31 (27-31) pg MCHC 32 (32-36) % Plt Count 241 (150-400) K/uL Sodium 138 L (140-148) mmol/L Potassium 4.5 (3.6-5.2) mmol/L Chloride 100 (100-108) mmol/L Carbon Dioxide 27 (21-32) mmol/L Anion Gap 15.5 H (5.0-14.0) mmol/L BUN 23 H (7-18) mg/dL Creatinine 1.5 H (0.6-1.0) mg/dL Est Cr Clr Drug Dosing 22.87 mL/min Estimated GFR (MDRD) 33 L (>60) Glucose 131 H (74-106) mg/dL Lactic Acid 1.5 (0.4-2.0) mmol/L Calcium 8.5 (8.5-10.1) mg/dL Meds: Medications Discontinued Medications Generic Name Dose Route Start Last Admin Trade Name Freq PRN Reason Stop Dose Admin Acetaminophen 1,000 mg 04/27/18 19:48 04/27/18 20:12 Tylenol Extra Strength PO 04/27/18 19:49 1,000 mg ONETIME ONE Administration Lactated Ringer's 1,000 mls @ 1,000 mls/hr 04/27/18 19:50 04/27/18 20:23 Ringers, Lactated IV 04/27/18 20:49 1,000 mls/hr BOLUS ONE Administration Levofloxacin/Dextrose 750 mg/ 150 mls @ 100 mls/hr 04/27/18 22:04 04/27/18 22 :20 Premix IV 04/27/18 23:33 100 mls/hr ONETIME ONE Administration Departure - Departure Time of Disposition: 00:00 Disposition: Home, Self-Care 01 Condition: Fair Clinical Impression: UTI (urinary tract infection) Qualifiers: Urinary tract infection type: site unspecified Hematuria presence: without hematuria Qualified Code(s): N39.0 - Urinary tract infection, site not specified - Discharge Information Referrals: PCP,None [Primary Care Provider] - Forms: ED Department Discharge - My Orders Last 24 Hours: My Active Orders 04/27/18 20:10 CULTURE BLOOD [BC] Stat 04/27/18 20:56 Chest 1V Frontal [CR] Stat 04/27/18 21:15 CULTURE BLOOD [BC] Stat - Assessment/Plan Last 24 Hours: My Active Orders 04/27/18 20:10 CULTURE BLOOD [BC] Stat 04/27/18 20:56 Chest 1V Frontal [CR] Stat 04/27/18 21:15 CULTURE BLOOD [BC] Stat
[2018-04-27] MEDS ORDERED: Levofloxacin/Dextrose 5%-Water 750 MG in Premix Bag 1 BAG IV ONE (22:04)
[2018-04-27 23:37] VITALS: BP 133/84
--- NOTE | 2018-04-29 09:32 | CR ---
CHEST: Portable CLINICAL HISTORY:Fever COMPARISON:09/10/2017 FINDINGS: Study is limited due to portions [place] level. No definite infiltrates are seen. There are no effusions. There are atherosclerotic changes in the aorta.. IMPRESSION: Limited study with poor inspiratory level. No definite infiltrates are seen
== END 2018-04-28 01:06 | disposition home or self-care (01) ==
LOC: JP.ED 19:23
DX: N39.0 Urinary tract infection, site not specified (principal); I12.9 Hypertensive chronic kidney disease with stage 1 through stage 4 chronic kidney disease, or unspecified chronic kidney disease; N18.9 Chronic kidney disease, unspecified; E78.00 Pure hypercholesterolemia, unspecified; Z79.899 Other long term (current) drug therapy; Z79.01 Long term (current) use of anticoagulants
CPT/HCPCS: 36415; 71045; 80048; 83605; 85027; 87040; 96365; 96366; 99283; 99284; A9270; J1956; J7120